=== PATIENT | male | born 1960 | race African-American/Black ===

== ENCOUNTER 2017-04-09 15:24 | Inpatient (IN) | payer OTHER ==
[~2017-04-09] VITALS: Ht 172.7 cm; Wt 69.4 kg
[~2017-04-09 15:24] MED LIST: ASPI81TA33 PO; CARV3 PO; FURO40 PO; KDUR10 PO
[2017-04-09 17:28] LABS: BASOPHILS # (AUTO) 0.02 K/uL (0.00-0.20); BASOPHILS % (AUTO) 0.2 % (0.0-2.0); EOSINOPHILS % (AUTO) 0 % (1.0-6.0); HEMATOCRIT 35.1 % (41-53); HEMOGLOBIN 10.9 g/dL (13.5-17.5); LYMPHOCYTES # (AUTO) 0.5 K/uL (1.0-4.8); LYMPHOCYTES % (AUTO) 6.4 % (22.0-44.0); MEAN CORPUSCULAR VOLUME 80 fL (80-100); MONOCYTES # (AUTO) 0.5 K/uL (0.1-1.0); MONOCYTES % (AUTO) 6.3 % (2.0-9.0); NEUTROPHILS # (AUTO) 7.2 K/uL (1.8-7.7); NEUTROPHILS % (AUTO) 87.1 % (40.0-70.0); PLATELET COUNT (AUTO) 228 K/uL (150-450); RED BLOOD CELL COUNT(AUTO) 4.36 MIL/uL (4.50-5.90); RED CELL DISTRIBUTION WIDTH 18.9 % (11.5-14.5)
[2017-04-09 17:39] LABS: INR 1.2 (0.9-1.1); PROTHROMBIN TIME 12.4 SEC (9.4-11.6)
[2017-04-09 17:42] LABS: ANION GAP 12 mmol/L (8-16); CALCIUM, TOTAL 8.5 mg/dL (8.8-10.5); CARBON DIOXIDE 25 mmol/L (22-29); CHLORIDE 101 mmol/L (98-107); CREATININE 1.31 mg/dL (0.60-1.30); GLOMERULAR FILTR. RATE CALC > 60 mL/min (>60); GLUCOSE,RANDOM 108 mg/dL (70-110); SODIUM SERUM 138 mmol/L (136-145); UREA NITROGEN, BLOOD 17 mg/dL (7-18)
[2017-04-09 17:48] LABS: B-TYPE NATRIURETIC PEPTIDE 1980 pg/mL (0-100)
[2017-04-09 17:52] LABS: ALBUMIN 3.2 g/dL (3.4-5.0); ALKALINE PHOSPHATASE 151 U/L (46-116); ASPARTATE AMINOTRANSFERASE 35 U/L (15-37); TOTAL PROTEIN, SERUM 7.4 g/dL (6.4-8.2)
[2017-04-09 18:04] LABS: ALANINE AMINOTRANSFERASE 39 U/L (12-78)
[2017-04-09] MEDS ORDERED: FUROSEMIDE 40 MG/4 ML VIAL IVP ONE (18:30)
[2017-04-09] MEDS ORDERED: NITROGLYCERIN 2% (1 GM=INCH) PACKET TP ONE (18:30)
[2017-04-09] MEDS ORDERED: ASPIRIN 81 MG CHEWABLE TABLET PO ONE (18:30)
[2017-04-09] MEDS ORDERED: ACETAMINOPHEN 325 MG TABLET PO PRN (18:45)
[2017-04-09] MEDS ORDERED: ONDANSETRON HCL 4 MG/2 ML VIAL IVP PRN (18:45)
[2017-04-09] MEDS ORDERED: 0.9% SODIUM CHLORIDE 10 ML SYRINGE IVP PRN (18:45)
[2017-04-09 19:47] LABS: APPEARANCE,URINE CLEAR (CLEAR); BILIRUBIN,URINE NEGATIVE (NEGATIVE); GLUCOSE, URINE (UA) NEGATIVE (NEGATIVE); KETONES,URINE NEGATIVE (NEGATIVE); LEUKOCYTE ESTERASE ,URINE TRACE (NEGATIVE); NITRATE,URINE NEGATIVE (NEGATIVE); OCCULT BLOOD,URINE TRACE (NEGATIVE); PROTEIN,URINE NEGATIVE (NEGATIVE)
[2017-04-09 19:57] LABS: BACTERIA,URINE None Seen /HPF (None Seen); RBC,URINE 0-2 /HPF (0-2); SQUAMOUS EPITHELIAL CELL,UR Few /LPF (None Seen)
[2017-04-09 19:58] LABS: AMPHET/METH SCREEN,URINE POSITIVE (NEGATIVE); BARBITURATE SCREEN, URINE NEGATIVE (NEGATIVE); BENZODIAZEPINES SCREEN,URINE NEGATIVE (NEGATIVE); CANNABINOID SCREEN,URINE POSITIVE (NEGATIVE); COCAINE SCREEN,URINE NEGATIVE (NEGATIVE); METHADONE SCREEN, URINE NEGATIVE (NEGATIVE); OPIATE SCREEN,URINE NEGATIVE (NEGATIVE)
[2017-04-09 19:59] LABS: PHENCYCLIDINE SCREEN,URINE NEGATIVE (NEGATIVE)
[2017-04-10 00:28] VITALS: BP 109/62
[2017-04-10 04:44] VITALS: BP 126/74
[2017-04-10 08:00] VITALS: BP 104/62
[2017-04-10 08:08] LABS: EOSINOPHILS % (AUTO) 0 % (1.0-6.0); HEMATOCRIT 31.6 % (41-53); HEMOGLOBIN 9.7 g/dL (13.5-17.5); LYMPHOCYTES # (AUTO) 0.4 K/uL (1.0-4.8); LYMPHOCYTES % (AUTO) 5.8 % (22.0-44.0); MEAN CORPUSCULAR HEMOGLOBIN 24.8 pg (26.0-34.0); MEAN CORPUSCULAR HGB CONC 30.6 G/dL (31.0-37.0); MEAN CORPUSCULAR VOLUME 81 fL (80-100); MONOCYTES # (AUTO) 0.9 K/uL (0.1-1.0); MONOCYTES % (AUTO) 11.8 % (2.0-9.0); NEUTROPHILS # (AUTO) 6.2 K/uL (1.8-7.7); NEUTROPHILS % (AUTO) 82.4 % (40.0-70.0); PLATELET COUNT (AUTO) 198 K/uL (150-450); RED BLOOD CELL COUNT(AUTO) 3.91 MIL/uL (4.50-5.90); RED CELL DISTRIBUTION WIDTH 19.2 % (11.5-14.5)
[2017-04-10] MEDS ORDERED: FUROSEMIDE 40 MG/4 ML VIAL IVP STA (08:21)
[2017-04-10] MEDS ORDERED: HYDROCODONE/ACETAMINOPHEN 5-325 MG TABLET PO PRN (08:30)
[2017-04-10] MEDS ORDERED: ONDANSETRON HCL 4 MG/2 ML VIAL IVP PRN (08:30)
[2017-04-10] MEDS ORDERED: IPRATROPIUM BROMIDE 0.5 MG/2.5 ML NEB SOLUTION NEB PRN (08:30)
[2017-04-10] MEDS ORDERED: MAGNESIUM HYDROXIDE SUSPENSION 30 ML UDCUP PO PRN (08:30)
[2017-04-10] MEDS ORDERED: MAGNESIUM SULFATE 2 GM in DEXTROSE 5%-WATER 50 ML IV PRN (08:30)
[2017-04-10] MEDS ORDERED: POTASSIUM CHL 10 MEQ/WATER 50 ML IV PRN (08:30)
[2017-04-10] MEDS ORDERED: ALBUTEROL SULFATE 2.5 MG/0.5 ML NEB SOLUTION NEB PRN (08:30)
[2017-04-10] MEDS ORDERED: ZOLPIDEM TARTRATE 5 MG TABLET PO PRN (08:30)
[2017-04-10] MEDS ORDERED: MAGNESIUM SULFATE 4 GM/WATER 100 ML IV PRN (08:30)
[2017-04-10] MEDS ORDERED: MORPHINE SULFATE 2 MG/ML SYRINGE IVP PRN (08:30)
[2017-04-10] MEDS: ASPIRIN 81 MG EC TABLET PO SCH (08:38)
[2017-04-10 09:19] LABS: INR 1.3 (0.9-1.1); PROTHROMBIN TIME 13.2 SEC (9.4-11.6)
[2017-04-10 09:26] LABS: CHOL/HDL RATIO 3.5 (4.2-7.3); MAGNESIUM 1.7 mg/dL (1.80-2.40); PHOSPHORUS 3.6 mg/dL (2.5-4.9)
[2017-04-10] MEDS: CARVEDILOL 3.125 MG TABLET PO SCH ×2 (10:54→20:07)
[2017-04-10] MEDS: ATORVASTATIN CALCIUM 10 MG TABLET PO SCH (10:54)
[2017-04-10] MEDS: DOCUSATE SODIUM 100 MG CAPSULE PO SCH ×2 (10:54→20:07)
[2017-04-10] MEDS: PANTOPRAZOLE SODIUM 40 MG DR TABLET PO SCH (10:55)
[2017-04-10] MEDS: LISINOPRIL 5 MG TABLET PO SCH (10:55)
[2017-04-10 12:00] VITALS: BP 108/68
[2017-04-10 12:47] LABS: ALBUMIN 2.8 g/dL (3.4-5.0); CALCIUM, TOTAL 8.1 mg/dL (8.8-10.5); CREATININE 1.67 mg/dL (0.60-1.30); POTASSIUM 3.6 mmol/L (3.5-5.1)
[2017-04-10 13:07] LABS: THYROID STIMULATING HORMONE 0.94 uIU/mL (0.36-3.74)
[2017-04-10] MEDS: ACETAMINOPHEN 325 MG TABLET PO PRN (13:29)
[2017-04-10] MEDS ORDERED: HEPARIN SODIUM,PORCINE 5,000 UNITS/ML VIAL SQ SCH (16:00)
[2017-04-10 16:03] LABS: INFLUENZA TYPE A NEGATIVE FOR TYPE A (NEGATIVE); INFLUENZA TYPE B NEGATIVE FOR TYPE B (NEGATIVE)
[2017-04-10 16:26] VITALS: BP 93/71
[2017-04-10] MEDS ORDERED: entresto PO (16:40)
[2017-04-10] MEDS: HEPARIN SODIUM,PORCINE 5,000 UNITS/ML VIAL SQ SCH ×2 (16:42→23:49)
[2017-04-10 19:13] VITALS: BP 100/69
[2017-04-11] VITALS (7 sets, daily range): BP systolic 91–107; BP diastolic 44–78
[2017-04-11] MEDS ORDERED: MAGNESIUM SULFATE 1 GM in DEXTROSE 5%-WATER 50 ML IV ONE (02:30)
[2017-04-11 07:45] LABS: BASOPHILS % (AUTO) 0.1 % (0.0-2.0); EOSINOPHILS % (AUTO) 0 % (1.0-6.0); HEMATOCRIT 32.4 % (41-53); HEMOGLOBIN 10.2 g/dL (13.5-17.5); LYMPHOCYTES # (AUTO) 1.2 K/uL (1.0-4.8); LYMPHOCYTES % (AUTO) 14.6 % (22.0-44.0); MEAN CORPUSCULAR HEMOGLOBIN 25.3 pg (26.0-34.0); MEAN CORPUSCULAR HGB CONC 31.6 G/dL (31.0-37.0); MEAN CORPUSCULAR VOLUME 80 fL (80-100); MONOCYTES # (AUTO) 1.2 K/uL (0.1-1.0); MONOCYTES % (AUTO) 14.4 % (2.0-9.0); NEUTROPHILS # (AUTO) 5.9 K/uL (1.8-7.7); NEUTROPHILS % (AUTO) 70.9 % (40.0-70.0); PLATELET COUNT (AUTO) 211 K/uL (150-450); RED BLOOD CELL COUNT(AUTO) 4.04 MIL/uL (4.50-5.90); RED CELL DISTRIBUTION WIDTH 19.4 % (11.5-14.5)
[2017-04-11] MEDS: ASPIRIN 81 MG EC TABLET PO SCH (08:03)
[2017-04-11] MEDS: HEPARIN SODIUM,PORCINE 5,000 UNITS/ML VIAL SQ SCH ×3 (08:03→23:18)
[2017-04-11] MEDS: ATORVASTATIN CALCIUM 10 MG TABLET PO SCH (08:03)
[2017-04-11] MEDS: LISINOPRIL 5 MG TABLET PO SCH (08:04)
[2017-04-11] MEDS: CARVEDILOL 3.125 MG TABLET PO SCH ×2 (08:04→20:04)
[2017-04-11] MEDS: DOCUSATE SODIUM 100 MG CAPSULE PO SCH ×2 (08:04→20:04)
[2017-04-11] MEDS: PANTOPRAZOLE SODIUM 40 MG DR TABLET PO SCH (08:04)
[2017-04-11] MEDS: ACETAMINOPHEN 325 MG TABLET PO PRN (16:04)
[2017-04-11] MEDS ORDERED: SACU1TAB PO (16:21)
[2017-04-11] MEDS: POTASSIUM CHLORIDE 10 MEQ ER TABLET PO SCH (20:04)
[2017-04-11] MEDS: FUROSEMIDE 40 MG TABLET PO SCH (20:04)
[2017-04-11] MEDS: GuaiFENesin/D-METHORPHAN [SUGAR-FREE] 200-20MG/10 ML SYRUP UDCUP PO PRN (20:05)
[2017-04-12 03:35] VITALS: BP 103/58
[2017-04-12] MEDS: GuaiFENesin/D-METHORPHAN [SUGAR-FREE] 200-20MG/10 ML SYRUP UDCUP PO PRN ×3 (04:59→20:06)
[2017-04-12 07:51] VITALS: BP 120/49
[2017-04-12 08:52] LABS: ANION GAP 10 mmol/L (8-16); CALCIUM, TOTAL 7.9 mg/dL (8.8-10.5); CARBON DIOXIDE 28 mmol/L (22-29); CHLORIDE 94 mmol/L (98-107); CREATININE 1.41 mg/dL (0.60-1.30); GLOMERULAR FILTR. RATE CALC > 60 mL/min (>60); GLUCOSE,RANDOM 115 mg/dL (70-110); POTASSIUM 3.7 mmol/L (3.5-5.1); SODIUM SERUM 132 mmol/L (136-145); UREA NITROGEN, BLOOD 26 mg/dL (7-18)
[2017-04-12] MEDS: LISINOPRIL 5 MG TABLET PO SCH (09:00)
[2017-04-12] MEDS: FUROSEMIDE 40 MG TABLET PO SCH ×2 (09:00→19:36)
[2017-04-12] MEDS: POTASSIUM CHLORIDE 10 MEQ ER TABLET PO SCH ×2 (09:07→20:06)
[2017-04-12] MEDS: ATORVASTATIN CALCIUM 10 MG TABLET PO SCH (09:07)
[2017-04-12] MEDS: CARVEDILOL 3.125 MG TABLET PO SCH ×2 (09:07→20:06)
[2017-04-12] MEDS: DOCUSATE SODIUM 100 MG CAPSULE PO SCH ×2 (09:07→20:06)
[2017-04-12] MEDS: ASPIRIN 81 MG EC TABLET PO SCH (09:07)
[2017-04-12] MEDS: PANTOPRAZOLE SODIUM 40 MG DR TABLET PO SCH (09:07)
[2017-04-12] MEDS: HEPARIN SODIUM,PORCINE 5,000 UNITS/ML VIAL SQ SCH ×2 (09:08→16:43)
[2017-04-12 12:06] VITALS: BP 103/75
[2017-04-12 16:09] VITALS: BP 120/53
[2017-04-12 19:49] VITALS: BP 109/60
[2017-04-12 23:29] VITALS: BP 108/77
[2017-04-13] MEDS: HEPARIN SODIUM,PORCINE 5,000 UNITS/ML VIAL SQ SCH ×4 (01:10→23:25)
[2017-04-13 05:17] VITALS: BP 111/76
[2017-04-13 07:47] LABS: BASOPHILS # (AUTO) 0.03 K/uL (0.00-0.20); BASOPHILS % (AUTO) 0.5 % (0.0-2.0); EOSINOPHILS # (AUTO) 0.01 K/uL (0.00-0.70); EOSINOPHILS % (AUTO) 0.12 % (1.0-6.0); HEMATOCRIT 32.7 % (41-53); HEMOGLOBIN 10.1 g/dL (13.5-17.5); LYMPHOCYTES # (AUTO) 1.3 K/uL (1.0-4.8); MEAN CORPUSCULAR HEMOGLOBIN 25.1 pg (26.0-34.0); MEAN CORPUSCULAR HGB CONC 30.8 G/dL (31.0-37.0); MEAN CORPUSCULAR VOLUME 81 fL (80-100); MONOCYTES % (AUTO) 14.4 % (2.0-9.0); NEUTROPHILS # (AUTO) 4.4 K/uL (1.8-7.7); NEUTROPHILS % (AUTO) 66.1 % (40.0-70.0); PLATELET COUNT (AUTO) 177 K/uL (150-450); RED BLOOD CELL COUNT(AUTO) 4.01 MIL/uL (4.50-5.90); RED CELL DISTRIBUTION WIDTH 19.5 % (11.5-14.5)
[2017-04-13 08:07] VITALS: BP 117/56
[2017-04-13 08:14] LABS: ALBUMIN 2.7 g/dL (3.4-5.0); CREATININE 1.49 mg/dL (0.60-1.30); MAGNESIUM 2.2 mg/dL (1.80-2.40); POTASSIUM 3.7 mmol/L (3.5-5.1); TOTAL PROTEIN, SERUM 6.8 g/dL (6.4-8.2)
[2017-04-13] MEDS: PANTOPRAZOLE SODIUM 40 MG DR TABLET PO SCH (08:46)
[2017-04-13] MEDS: CARVEDILOL 3.125 MG TABLET PO SCH (08:46)
[2017-04-13] MEDS: LISINOPRIL 5 MG TABLET PO SCH (08:47)
[2017-04-13] MEDS: ASPIRIN 81 MG EC TABLET PO SCH (08:47)
[2017-04-13] MEDS: DOCUSATE SODIUM 100 MG CAPSULE PO SCH ×2 (08:47→21:46)
[2017-04-13] MEDS: ATORVASTATIN CALCIUM 10 MG TABLET PO SCH (08:47)
[2017-04-13] MEDS: POTASSIUM CHLORIDE 10 MEQ ER TABLET PO SCH ×2 (08:47→21:46)
[2017-04-13] MEDS: FUROSEMIDE 40 MG/4 ML VIAL IVP SCH ×2 (08:53→21:46)
[2017-04-13 11:42] VITALS: BP 100/52
[2017-04-13 15:41] VITALS: BP 105/67
[2017-04-13] MEDS ORDERED: BUMETANIDE 0.25 MG/ML 4 ML VIAL IVP ONE (17:00)
[2017-04-13 19:48] VITALS: BP 111/57
[2017-04-13 23:03] VITALS: BP 114/51
[2017-04-13] MEDS: ACETAMINOPHEN 325 MG TABLET PO PRN (23:25)
[2017-04-14 05:15] VITALS: BP 101/50
[2017-04-14 07:16] VITALS: BP 123/68
[2017-04-14 07:20] LABS: ALBUMIN 2.6 g/dL (3.4-5.0); CALCIUM, TOTAL 7.6 mg/dL (8.8-10.5); CREATININE 1.65 mg/dL (0.60-1.30); MAGNESIUM 2.2 mg/dL (1.80-2.40); POTASSIUM 3.8 mmol/L (3.5-5.1); TOTAL PROTEIN, SERUM 6.8 g/dL (6.4-8.2)
[2017-04-14 07:22] LABS: BASOPHILS # (AUTO) 0.04 K/uL (0.00-0.20); BASOPHILS % (AUTO) 0.6 % (0.0-2.0); EOSINOPHILS % (AUTO) 0 % (1.0-6.0); HEMOGLOBIN 10.3 g/dL (13.5-17.5); LYMPHOCYTES # (AUTO) 1.2 K/uL (1.0-4.8); LYMPHOCYTES % (AUTO) 17.2 % (22.0-44.0); MEAN CORPUSCULAR HEMOGLOBIN 24.8 pg (26.0-34.0); MEAN CORPUSCULAR HGB CONC 30.3 G/dL (31.0-37.0); MEAN CORPUSCULAR VOLUME 82 fL (80-100); MONOCYTES # (AUTO) 1.1 K/uL (0.1-1.0); NEUTROPHILS # (AUTO) 4.5 K/uL (1.8-7.7); NEUTROPHILS % (AUTO) 66.2 % (40.0-70.0); PLATELET COUNT (AUTO) 178 K/uL (150-450); RED BLOOD CELL COUNT(AUTO) 4.16 MIL/uL (4.50-5.90); RED CELL DISTRIBUTION WIDTH 19.2 % (11.5-14.5)
[2017-04-14] MEDS: ATORVASTATIN CALCIUM 10 MG TABLET PO SCH (09:19)
[2017-04-14] MEDS: HEPARIN SODIUM,PORCINE 5,000 UNITS/ML VIAL SQ SCH ×3 (09:19→23:07)
[2017-04-14] MEDS: FUROSEMIDE 40 MG/4 ML VIAL IVP SCH ×2 (09:19→20:08)
[2017-04-14] MEDS: PANTOPRAZOLE SODIUM 40 MG DR TABLET PO SCH (09:20)
[2017-04-14] MEDS: ASPIRIN 81 MG EC TABLET PO SCH (09:20)
[2017-04-14] MEDS: POTASSIUM CHLORIDE 10 MEQ ER TABLET PO SCH ×2 (09:20→20:07)
[2017-04-14] MEDS: DOCUSATE SODIUM 100 MG CAPSULE PO SCH ×2 (09:21→20:07)
[2017-04-14 10:47] VITALS: BP 123/72
[2017-04-14 14:50] VITALS: BP 144/76
[2017-04-14 19:23] VITALS: BP 137/71
[2017-04-14 23:13] VITALS: BP 98/53
[2017-04-15 05:10] VITALS: BP 106/67
[2017-04-15 07:43] VITALS: BP 93/58
[2017-04-15 08:44] LABS: ALBUMIN 2.6 g/dL (3.4-5.0); BILIRUBIN,TOTAL 0.9 mg/dL (0.1-1.0); CALCIUM, TOTAL 7.6 mg/dL (8.8-10.5); CREATININE 1.53 mg/dL (0.60-1.30); MAGNESIUM 2.1 mg/dL (1.80-2.40); POTASSIUM 3.3 mmol/L (3.5-5.1); TOTAL PROTEIN, SERUM 6.9 g/dL (6.4-8.2)
[2017-04-15] MEDS: ATORVASTATIN CALCIUM 10 MG TABLET PO SCH (09:33)
[2017-04-15] MEDS: ASPIRIN 81 MG EC TABLET PO SCH (09:33)
[2017-04-15] MEDS: PANTOPRAZOLE SODIUM 40 MG DR TABLET PO SCH (09:33)
[2017-04-15] MEDS: HEPARIN SODIUM,PORCINE 5,000 UNITS/ML VIAL SQ SCH ×3 (09:33→23:44)
[2017-04-15] MEDS: DOCUSATE SODIUM 100 MG CAPSULE PO SCH ×2 (09:33→20:33)
[2017-04-15] MEDS: POTASSIUM CHLORIDE 10 MEQ ER TABLET PO SCH ×2 (09:36→20:37)
[2017-04-15 09:42] LABS: BASOPHILS # (AUTO) 0.03 K/uL (0.00-0.20); BASOPHILS % (AUTO) 0.5 % (0.0-2.0); EOSINOPHILS # (AUTO) 0.01 K/uL (0.00-0.70); EOSINOPHILS % (AUTO) 0.13 % (1.0-6.0); HEMATOCRIT 33.4 % (41-53); HEMOGLOBIN 10.2 g/dL (13.5-17.5); LYMPHOCYTES # (AUTO) 1.6 K/uL (1.0-4.8); LYMPHOCYTES % (AUTO) 22.5 % (22.0-44.0); MEAN CORPUSCULAR HEMOGLOBIN 25.4 pg (26.0-34.0); MEAN CORPUSCULAR HGB CONC 30.6 G/dL (31.0-37.0); MEAN CORPUSCULAR VOLUME 83 fL (80-100); MONOCYTES # (AUTO) 0.8 K/uL (0.1-1.0); MONOCYTES % (AUTO) 11.1 % (2.0-9.0); NEUTROPHILS # (AUTO) 4.7 K/uL (1.8-7.7); NEUTROPHILS % (AUTO) 65.9 % (40.0-70.0); PLATELET COUNT (AUTO) 157 K/uL (150-450); RED BLOOD CELL COUNT(AUTO) 4.02 MIL/uL (4.50-5.90); RED CELL DISTRIBUTION WIDTH 19.3 % (11.5-14.5)
[2017-04-15] MEDS ORDERED: POTASSIUM CHLORIDE 20 MEQ ER TABLET PO ONE (10:30)
[2017-04-15] MEDS: LISINOPRIL 5 MG TABLET PO SCH (11:11)
[2017-04-15 11:27] VITALS: BP 124/73
[2017-04-15 15:33] VITALS: BP 117/71
[2017-04-15] MEDS: FUROSEMIDE 40 MG/4 ML VIAL IVP SCH ×2 (15:51→20:34)
[2017-04-15 20:03] VITALS: BP 110/65
[2017-04-15] MEDS: POTASSIUM CHLORIDE 20 MEQ ER TABLET PO PRN (20:33)
[2017-04-15 23:51] VITALS: BP 110/57
[2017-04-16] VITALS (7 sets, daily range): BP systolic 91–115; BP diastolic 57–78
[2017-04-16] MEDS: GuaiFENesin/D-METHORPHAN [SUGAR-FREE] 200-20MG/10 ML SYRUP UDCUP PO PRN ×2 (00:53→20:33)
[2017-04-16] MEDS: ACETAMINOPHEN 325 MG TABLET PO PRN (00:53)
[2017-04-16 06:35] LABS: BASOPHILS % (AUTO) 0.5 % (0.0-2.0); EOSINOPHILS % (AUTO) 0 % (1.0-6.0); HEMATOCRIT 34.7 % (41-53); HEMOGLOBIN 10.7 g/dL (13.5-17.5); LYMPHOCYTES # (AUTO) 1.5 K/uL (1.0-4.8); LYMPHOCYTES % (AUTO) 21.8 % (22.0-44.0); MEAN CORPUSCULAR HEMOGLOBIN 25.2 pg (26.0-34.0); MEAN CORPUSCULAR VOLUME 81 fL (80-100); MONOCYTES # (AUTO) 0.8 K/uL (0.1-1.0); MONOCYTES % (AUTO) 11.1 % (2.0-9.0); NEUTROPHILS # (AUTO) 4.7 K/uL (1.8-7.7); NEUTROPHILS % (AUTO) 66.6 % (40.0-70.0); PLATELET COUNT (AUTO) 186 K/uL (150-450); RED BLOOD CELL COUNT(AUTO) 4.26 MIL/uL (4.50-5.90); RED CELL DISTRIBUTION WIDTH 19.9 % (11.5-14.5)
[2017-04-16 07:02] LABS: ALANINE AMINOTRANSFERASE 63 U/L (12-78); ALBUMIN 2.7 g/dL (3.4-5.0); ALKALINE PHOSPHATASE 198 U/L (46-116); ANION GAP 7 mmol/L (8-16); ASPARTATE AMINOTRANSFERASE 71 U/L (15-37); BILIRUBIN,TOTAL 0.9 mg/dL (0.1-1.0); CALCIUM, TOTAL 7.5 mg/dL (8.8-10.5); CARBON DIOXIDE 32 mmol/L (22-29); CHLORIDE 95 mmol/L (98-107); CREATININE 1.39 mg/dL (0.60-1.30); GLOMERULAR FILTR. RATE CALC > 60 mL/min (>60); GLUCOSE,RANDOM 99 mg/dL (70-110); POTASSIUM 3.6 mmol/L (3.5-5.1); SODIUM SERUM 134 mmol/L (136-145); TOTAL PROTEIN, SERUM 7.2 g/dL (6.4-8.2); UREA NITROGEN, BLOOD 18 mg/dL (7-18)
[2017-04-16] MEDS: ASPIRIN 81 MG EC TABLET PO SCH (08:34)
[2017-04-16] MEDS: DOCUSATE SODIUM 100 MG CAPSULE PO SCH ×2 (08:34→20:33)
[2017-04-16] MEDS: PANTOPRAZOLE SODIUM 40 MG DR TABLET PO SCH (08:34)
[2017-04-16] MEDS: HEPARIN SODIUM,PORCINE 5,000 UNITS/ML VIAL SQ SCH ×3 (08:34→23:57)
[2017-04-16] MEDS: FUROSEMIDE 40 MG/4 ML VIAL IVP SCH ×2 (08:34→20:33)
[2017-04-16] MEDS: ATORVASTATIN CALCIUM 10 MG TABLET PO SCH (08:34)
[2017-04-16] MEDS: POTASSIUM CHLORIDE 10 MEQ ER TABLET PO SCH ×2 (08:36→20:33)
[2017-04-16 10:59] LABS: MAGNESIUM 2.2 mg/dL (1.80-2.40)
[2017-04-16] MEDS: LISINOPRIL 5 MG TABLET PO SCH (15:50)
[2017-04-16] MEDS: METOPROLOL SUCCINATE 25 MG ER TABLET PO SCH ×2 (15:50→20:33)
[2017-04-17 05:00] VITALS: BP 95/61
[2017-04-17 07:04] LABS: BASOPHILS # (AUTO) 0.02 K/uL (0.00-0.20); BASOPHILS % (AUTO) 0.3 % (0.0-2.0); EOSINOPHILS # (AUTO) 0.01 K/uL (0.00-0.70); EOSINOPHILS % (AUTO) 0.09 % (1.0-6.0); HEMATOCRIT 36.2 % (41-53); HEMOGLOBIN 10.8 g/dL (13.5-17.5); LYMPHOCYTES # (AUTO) 1.5 K/uL (1.0-4.8); LYMPHOCYTES % (AUTO) 16.9 % (22.0-44.0); MEAN CORPUSCULAR HEMOGLOBIN 25.1 pg (26.0-34.0); MEAN CORPUSCULAR HGB CONC 29.8 G/dL (31.0-37.0); MEAN CORPUSCULAR VOLUME 84 fL (80-100); MONOCYTES # (AUTO) 0.8 K/uL (0.1-1.0); MONOCYTES % (AUTO) 8.7 % (2.0-9.0); NEUTROPHILS # (AUTO) 6.5 K/uL (1.8-7.7); NEUTROPHILS % (AUTO) 74.1 % (40.0-70.0); PLATELET COUNT (AUTO) 182 K/uL (150-450)
[2017-04-17 07:56] VITALS: BP 97/65
[2017-04-17 08:09] LABS: ALANINE AMINOTRANSFERASE 59 U/L (12-78); ALBUMIN 2.6 g/dL (3.4-5.0); ALKALINE PHOSPHATASE 180 U/L (46-116); ANION GAP 6 mmol/L (8-16); ASPARTATE AMINOTRANSFERASE 52 U/L (15-37); BILIRUBIN,TOTAL 0.7 mg/dL (0.1-1.0); CALCIUM, TOTAL 7.7 mg/dL (8.8-10.5); CARBON DIOXIDE 32 mmol/L (22-29); CHLORIDE 94 mmol/L (98-107); CREATININE 1.27 mg/dL (0.60-1.30); GLOMERULAR FILTR. RATE CALC > 60 mL/min (>60); GLUCOSE,RANDOM 93 mg/dL (70-110); POTASSIUM 3.4 mmol/L (3.5-5.1); SODIUM SERUM 132 mmol/L (136-145); TOTAL PROTEIN, SERUM 7.2 g/dL (6.4-8.2); UREA NITROGEN, BLOOD 14 mg/dL (7-18)
[2017-04-17] MEDS: DOCUSATE SODIUM 100 MG CAPSULE PO SCH ×2 (08:42→20:32)
[2017-04-17] MEDS: HEPARIN SODIUM,PORCINE 5,000 UNITS/ML VIAL SQ SCH ×3 (08:42→22:46)
[2017-04-17] MEDS: ATORVASTATIN CALCIUM 10 MG TABLET PO SCH (08:42)
[2017-04-17] MEDS: PANTOPRAZOLE SODIUM 40 MG DR TABLET PO SCH (08:42)
[2017-04-17] MEDS: ASPIRIN 81 MG EC TABLET PO SCH (08:42)
[2017-04-17] MEDS: FUROSEMIDE 40 MG/4 ML VIAL IVP SCH ×2 (08:50→20:32)
[2017-04-17] MEDS: POTASSIUM CHLORIDE 10 MEQ ER TABLET PO SCH ×2 (08:50→20:32)
[2017-04-17 09:16] LABS: PLATELET MORPHOLOGY COMMENT NORMAL
[2017-04-17] MEDS: GuaiFENesin/D-METHORPHAN [SUGAR-FREE] 200-20MG/10 ML SYRUP UDCUP PO PRN ×2 (10:18→20:35)
[2017-04-17] MEDS: METOPROLOL SUCCINATE 25 MG ER TABLET PO SCH ×2 (10:18→20:32)
[2017-04-17] MEDS: LISINOPRIL 5 MG TABLET PO SCH (10:18)
[2017-04-17 11:22] VITALS: BP 109/66
[2017-04-17 16:10] VITALS: BP 95/65
[2017-04-17 20:15] VITALS: BP 93/64
[2017-04-17] MEDS: POTASSIUM CHLORIDE 20 MEQ ER TABLET PO PRN (20:32)
[2017-04-17 22:40] VITALS: BP 93/64
[2017-04-18 04:00] VITALS: BP 97/63
[2017-04-18 07:39] VITALS: BP 91/57
[2017-04-18 07:40] LABS: BASOPHILS % (AUTO) 0.5 % (0.0-2.0); EOSINOPHILS % (AUTO) 0.1 % (1.0-6.0); HEMATOCRIT 35.9 % (41-53); HEMOGLOBIN 10.8 g/dL (13.5-17.5); LYMPHOCYTES # (AUTO) 1.9 K/uL (1.0-4.8); LYMPHOCYTES % (AUTO) 21.5 % (22.0-44.0); MEAN CORPUSCULAR HEMOGLOBIN 25.2 pg (26.0-34.0); MEAN CORPUSCULAR VOLUME 84 fL (80-100); MONOCYTES # (AUTO) 1.1 K/uL (0.1-1.0); MONOCYTES % (AUTO) 12.6 % (2.0-9.0); NEUTROPHILS # (AUTO) 5.9 K/uL (1.8-7.7); NEUTROPHILS % (AUTO) 65.3 % (40.0-70.0); PLATELET COUNT (AUTO) 216 K/uL (150-450); RED BLOOD CELL COUNT(AUTO) 4.27 MIL/uL (4.50-5.90); RED CELL DISTRIBUTION WIDTH 20.3 % (11.5-14.5)
[2017-04-18] MEDS: HEPARIN SODIUM,PORCINE 5,000 UNITS/ML VIAL SQ SCH ×2 (08:00→15:58)
[2017-04-18 08:31] LABS: ALANINE AMINOTRANSFERASE 50 U/L (12-78); ALBUMIN 2.6 g/dL (3.4-5.0); ALKALINE PHOSPHATASE 169 U/L (46-116); ANION GAP 8 mmol/L (8-16); ASPARTATE AMINOTRANSFERASE 40 U/L (15-37); B-TYPE NATRIURETIC PEPTIDE 830 pg/mL (0-100); BILIRUBIN,TOTAL 0.5 mg/dL (0.1-1.0); CALCIUM, TOTAL 7.9 mg/dL (8.8-10.5); CARBON DIOXIDE 29 mmol/L (22-29); CHLORIDE 95 mmol/L (98-107); CREATININE 1.23 mg/dL (0.60-1.30); GLOMERULAR FILTR. RATE CALC > 60 mL/min (>60); GLUCOSE,RANDOM 98 mg/dL (70-110); POTASSIUM 3.8 mmol/L (3.5-5.1); SODIUM SERUM 132 mmol/L (136-145); TOTAL PROTEIN, SERUM 7.3 g/dL (6.4-8.2); UREA NITROGEN, BLOOD 17 mg/dL (7-18)
[2017-04-18] MEDS: ATORVASTATIN CALCIUM 10 MG TABLET PO SCH (08:58)
[2017-04-18] MEDS: DOCUSATE SODIUM 100 MG CAPSULE PO SCH ×2 (08:58→20:28)
[2017-04-18] MEDS: ASPIRIN 81 MG EC TABLET PO SCH (08:58)
[2017-04-18] MEDS: POTASSIUM CHLORIDE 10 MEQ ER TABLET PO SCH ×2 (08:58→20:28)
[2017-04-18] MEDS: LISINOPRIL 5 MG TABLET PO SCH (08:58)
[2017-04-18] MEDS: FUROSEMIDE 40 MG/4 ML VIAL IVP SCH ×2 (08:58→20:28)
[2017-04-18 08:59] VITALS: BP 120/66
[2017-04-18] MEDS: PANTOPRAZOLE SODIUM 40 MG DR TABLET PO SCH (10:10)
[2017-04-18] MEDS: METOPROLOL SUCCINATE 25 MG ER TABLET PO SCH ×2 (10:10→21:00)
[2017-04-18 11:25] VITALS: BP 105/64
[2017-04-18 15:37] VITALS: BP 98/60
[2017-04-18 18:50] LABS: APPEARANCE,URINE CLEAR (CLEAR); BILIRUBIN,URINE NEGATIVE (NEGATIVE); GLUCOSE, URINE (UA) NEGATIVE (NEGATIVE); KETONES,URINE TRACE mg/dL (NEGATIVE); LEUKOCYTE ESTERASE ,URINE SMALL (NEGATIVE); NITRATE,URINE NEGATIVE (NEGATIVE); OCCULT BLOOD,URINE NEGATIVE (NEGATIVE); PROTEIN,URINE NEGATIVE (NEGATIVE)
[2017-04-18 19:02] LABS: BACTERIA,URINE Few /HPF (None Seen); RBC,URINE 0-2 /HPF (0-2); SQUAMOUS EPITHELIAL CELL,UR Few /LPF (None Seen)
[2017-04-18 19:54] VITALS: BP 110/68
[2017-04-19] VITALS (7 sets, daily range): BP systolic 92–130; BP diastolic 53–72
[2017-04-19 07:29] LABS: BASOPHILS % (AUTO) 0.7 % (0.0-2.0); EOSINOPHILS % (AUTO) 0.1 % (1.0-6.0); HEMATOCRIT 36.8 % (41-53); HEMOGLOBIN 11.1 g/dL (13.5-17.5); LYMPHOCYTES # (AUTO) 1.7 K/uL (1.0-4.8); LYMPHOCYTES % (AUTO) 18.9 % (22.0-44.0); MEAN CORPUSCULAR HEMOGLOBIN 25.3 pg (26.0-34.0); MEAN CORPUSCULAR HGB CONC 30.2 G/dL (31.0-37.0); MEAN CORPUSCULAR VOLUME 84 fL (80-100); MONOCYTES # (AUTO) 0.7 K/uL (0.1-1.0); NEUTROPHILS # (AUTO) 6.7 K/uL (1.8-7.7); NEUTROPHILS % (AUTO) 72.3 % (40.0-70.0); PLATELET COUNT (AUTO) 231 K/uL (150-450); RED CELL DISTRIBUTION WIDTH 20.3 % (11.5-14.5)
[2017-04-19] MEDS: HEPARIN SODIUM,PORCINE 5,000 UNITS/ML VIAL SQ SCH ×4 (08:00→23:20)
[2017-04-19 08:03] LABS: ALANINE AMINOTRANSFERASE 48 U/L (12-78); ALBUMIN 2.6 g/dL (3.4-5.0); ALKALINE PHOSPHATASE 162 U/L (46-116); ANION GAP 6 mmol/L (8-16); ASPARTATE AMINOTRANSFERASE 35 U/L (15-37); BILIRUBIN,TOTAL 0.6 mg/dL (0.1-1.0); CALCIUM, TOTAL 8.3 mg/dL (8.8-10.5); CARBON DIOXIDE 28 mmol/L (22-29); CHLORIDE 95 mmol/L (98-107); CREATININE 1.21 mg/dL (0.60-1.30); GLOMERULAR FILTR. RATE CALC > 60 mL/min (>60); GLUCOSE,RANDOM 93 mg/dL (70-110); POTASSIUM 4.2 mmol/L (3.5-5.1); SODIUM SERUM 129 mmol/L (136-145); TOTAL PROTEIN, SERUM 7.5 g/dL (6.4-8.2); UREA NITROGEN, BLOOD 21 mg/dL (7-18)
[2017-04-19] MEDS: ATORVASTATIN CALCIUM 10 MG TABLET PO SCH (08:49)
[2017-04-19] MEDS: DOCUSATE SODIUM 100 MG CAPSULE PO SCH ×2 (08:49→20:06)
[2017-04-19] MEDS: PANTOPRAZOLE SODIUM 40 MG DR TABLET PO SCH (08:50)
[2017-04-19] MEDS: ASPIRIN 81 MG EC TABLET PO SCH (08:50)
[2017-04-19] MEDS: LISINOPRIL 5 MG TABLET PO SCH (08:50)
[2017-04-19] MEDS: FUROSEMIDE 40 MG/4 ML VIAL IVP SCH ×3 (08:50→21:06)
[2017-04-19] MEDS: POTASSIUM CHLORIDE 10 MEQ ER TABLET PO SCH ×2 (08:51→20:06)
[2017-04-19] MEDS: METOPROLOL SUCCINATE 25 MG ER TABLET PO SCH ×2 (10:38→20:10)
[2017-04-20 04:51] VITALS: BP 108/64
[2017-04-20 07:17] VITALS: BP 98/59
[2017-04-20] MEDS: HEPARIN SODIUM,PORCINE 5,000 UNITS/ML VIAL SQ SCH ×2 (08:00→16:00)
[2017-04-20] MEDS ORDERED: LIDOCAINE HCL/PF 1% 30 ML VIAL ONE (09:16)
[2017-04-20] MEDS ORDERED: IOHEXOL 300 MG/ML 150 ML VIAL ONE (09:16)
[2017-04-20] MEDS ORDERED: HEPARIN SODIUM 1000 UNITS/NS 1,000 ML ONE (09:16)
[2017-04-20] MEDS ORDERED: SODIUM BICARBONATE 50 MEQ/50 ML VIAL ONE (09:16)
[2017-04-20] MEDS ORDERED: 0.9% SODIUM CHLORIDE 10 ML SYRINGE IVP ONE (09:16)
[2017-04-20] MEDS ORDERED: NITROGLYCERIN 50 MG/D5% WATER 0 ML ONE (09:17)
[2017-04-20] MEDS ORDERED: VERAPAMIL HCL 2.5 MG/ML 2 ML VIAL ONE (09:17)
[2017-04-20] MEDS ORDERED: HEPARIN SODIUM,PORCINE 1,000 UNITS/ML 10 ML VIAL ONE (09:17)
[2017-04-20] MEDS ORDERED: IOHEXOL 300 MG/ML 100 ML VIAL ONE (09:18)
[2017-04-20 09:39] VITALS: BP 98/75
[2017-04-20] MEDS ORDERED: FentaNYL CITRATE-PF 100 MCG/2 ML VIAL ONE (09:49)
[2017-04-20] MEDS ORDERED: MIDAZOLAM HCL 2 MG/2 ML VIAL ONE (09:49)
[2017-04-20] MEDS ORDERED: SODIUM CHLORIDE 0.9% 500 ML IV ONE (09:51)
[2017-04-20] MEDS ORDERED: LIDOCAINE 1% 30 ML/SOD BICARB 8.4% 4 ML SQ ONE (09:53)
[2017-04-20] MEDS ORDERED: HEPARIN SODIUM 2,000 UNITS in HEPARIN SODIUM 1000 UNITS/NS 1,000 ML IARTER ONE (09:54)
[2017-04-20] MEDS ORDERED: IOHEXOL 300 MG/ML 150 ML VIAL IARTER ONE (09:59)
[2017-04-20 10:19] VITALS: BP 92/68
[2017-04-20 12:26] VITALS: BP 104/50
[2017-04-20] MEDS ORDERED: LISI-660 PO (13:42)
[2017-04-20] MEDS ORDERED: METO25XL PO (13:42)
[2017-04-20] MEDS: ASPIRIN 81 MG EC TABLET PO SCH (14:07)
[2017-04-20] MEDS: DOCUSATE SODIUM 100 MG CAPSULE PO SCH (14:07)
[2017-04-20] MEDS: POTASSIUM CHLORIDE 10 MEQ ER TABLET PO SCH (14:07)
[2017-04-20] MEDS: FUROSEMIDE 40 MG/4 ML VIAL IVP SCH (14:07)
[2017-04-20] MEDS: ATORVASTATIN CALCIUM 10 MG TABLET PO SCH (14:07)
[2017-04-20] MEDS: METOPROLOL SUCCINATE 25 MG ER TABLET PO SCH (14:07)
[2017-04-20] MEDS: PANTOPRAZOLE SODIUM 40 MG DR TABLET PO SCH (14:07)
[2017-04-20] MEDS: LISINOPRIL 5 MG TABLET PO SCH (14:08)
[2017-04-20 15:43] VITALS: BP 100/67
[2017-04-20] MEDS ORDERED: FUROSEMIDE 40 MG TABLET PO SCH (21:00)
[2017-04-21] MEDS ORDERED: LISINOPRIL 5 MG TABLET PO SCH (09:00)
== END 2017-04-20 18:45 | disposition home or self-care (01) | DRG 192 ==
LOC: EMS 15:25 → AHU 22:00 → 5S 04-10 13:54
PROVIDERS: ADMIT Hospitalist; ATTEND Hospitalist
PROC: 4A023N7 Measurement of Cardiac Sampling and Pressure, Left Heart, Percutaneous Approach (ICD-10-PCS; principal; 2017-04-20)
PROC: B2111ZZ Fluoroscopy of Multiple Coronary Arteries using Low Osmolar Contrast (ICD-10-PCS; 2017-04-20)
PROC: B2151ZZ Fluoroscopy of Left Heart using Low Osmolar Contrast (ICD-10-PCS; 2017-04-20)
DX: I11.0 Hypertensive heart disease with heart failure (principal); I21.A1 Myocardial infarction type 2; R57.0 Cardiogenic shock; I47.2 Ventricular tachycardia; I50.23 Acute on chronic systolic (congestive) heart failure; N17.9 Acute kidney failure, unspecified; I42.9 Cardiomyopathy, unspecified; D64.9 Anemia, unspecified; E87.6 Hypokalemia; F12.90 Cannabis use, unspecified, uncomplicated; F15.10 Other stimulant abuse, uncomplicated; Z59.0 Homelessness; Z91.14 Patient's other noncompliance with medication regimen; Z82.49 Family history of ischemic heart disease and other diseases of the circulatory system; Z91.19 Patient's noncompliance with other medical treatment and regimen; Z95.810 Presence of automatic (implantable) cardiac defibrillator
CPT/HCPCS: 83735; 84100; 84132; 84443; 87086; 87804; 93005; 93306; 96374; 99285; J1250; J1644; J1940; J2250; J2270; J3010; J3475; J3490; J7060; Q9967